=== PATIENT | female | born 1955 | race Two or more races ===

== ENCOUNTER 2024-03-11 09:45 | Inpatient (IN) | payer OTHER ==
[~2024-03-11] VITALS: Ht 167.6 cm; Wt 61.2 kg
[~2024-03-11 09:45] MED LIST: ATENOLOL50 MG; CARDURA XL4 MG; ELIQUIS2.5 MG; HUMIRA40 MG/0.2; INTESTINEX680 M1 PO; LEVSIN/SL0.125 MG SL; SIMVASTATIN5 MG; SYNTHROID100 MCG; TRAZODONE HCL150 MG
[2024-03-11 11:38] LABS: PH,URINE 6.5 (5.0-8.0); URINE APPEARANCE Clear; URINE BILIRRUBIN Negative (NEGATIVE); URINE BLOOD Small; URINE COLOR Yellow; URINE GLUCOSE Negative (NEGATIVE); URINE KETONE Trace (NEGATIVE); URINE LEUKOCYTE Moderate; URINE NITRATE Positive; URINE PROTEIN Negative (NEGATIVE); URINE UROBILINOGEN 0.2 E.U./dl
[2024-03-11 11:39] LABS: HEMATOCRIT 33.4 % (36.0-45.00); HEMOGLOBIN 11.5 g/dL (12.0-15.00); MEAN CELL VOLUME 96.9 fL (80.00-100.00); MEAN CORPUSCULAR HEMOGLOBIN 33.4 pg (27.00-32.0); MEAN CORPUSCULAR HGB CONC 34.5 g/dl (32.0-36.0); PLATELET COUNT 168 K/uL (150-450); RED BLOOD COUNT 3.45 M/uL (4.00-6.00); RED CELL DISTRIBUTION WIDTH 13.7 % (11.5-14.5)
[2024-03-11 11:40] LABS: URINE RBC 20.7 uL (0.0-20.8); URINE WBC 346.7 uL (0.0-23.2)
[2024-03-11 12:06] VITALS: BP 117/67
[2024-03-11 12:17] LABS: INR 1.14; PARTIAL THROMBOPLASTIN TIME 37.9 SECONDS (22.0-34.0); PROTHROMBIN TIME 12.3 SECONDS (9.0-11.5)
[2024-03-11 12:28] LABS: URINE BACTERIA > 9821.5 uL (0.0-1933)
[2024-03-11 12:36] LABS: ALBUMIN 3.6 gm/dL (3.4-5.0); BILIRUBIN TOTAL 0.62 mg/dL (0.3-1.2); CALCIUM 8.8 mg/dL (8.5-10.1); CREATININE SERUM 0.81 mg/dL (0.55-1.02); GFR 70.11; POTASSIUM 4.19 mEq/L (3.5-5.1); TOTAL PROTEIN 6.6 gm/dL (6.4-8.2)
[2024-03-18] MEDS ORDERED: LIDOCAINE HCL 1%/EPINEPHRINE 20ML VIAL IJ ONE (12:30)
[2024-03-18] MEDS ORDERED: CEFTRIAXONE SODIUM 2,000 MG VIAL IV ONE (12:30)
[2024-03-18] MEDS ORDERED: BUPIVACAINE HCL 30 ML VIAL IJ ONE (12:30)
[2024-03-18] MEDS ORDERED: METRONIDAZOLE/SODIUM CHLORIDE 500 MG/100 ML PIGGYBACK IV ONE (12:30)
[2024-03-18] MEDS ORDERED: DEXTROSE 50 % IN WATER 0.5 G/ML DISP.SYRIN IV PRN (13:15)
[2024-03-18] MEDS ORDERED: 0.9 % SODIUM CHLORIDE 1,000 ML IV SCH (13:15)
[2024-03-18] MEDS ORDERED: OxyCODONE HCL 5 MG TABLET (ROXICODONE) PO PRN (13:15)
[2024-03-18] MEDS ORDERED: MORPHINE SULFATE 4 MG/ML CARTRIDGE IV PRN (13:15)
[2024-03-18] MEDS ORDERED: ONDANSETRON HCL 2 MG/ML VIAL IV PRN (13:15)
[2024-03-18] MEDS ORDERED: ACETAMINOPHEN 500 MG GEL..CAP PO SCH (14:00)
[2024-03-18] MEDS ORDERED: MORPHINE SULFATE 4 MG/ML VIAL IV ONE ×2 (15:10→17:00)
[2024-03-18 15:58] LABS: HEMATOCRIT 32.8 % (36.0-45.00); HEMOGLOBIN 11.3 g/dL (12.0-15.00); MEAN CELL VOLUME 98.3 fL (80.00-100.00); MEAN CORPUSCULAR HEMOGLOBIN 33.8 pg (27.00-32.0); MEAN CORPUSCULAR HGB CONC 34.4 g/dl (32.0-36.0); PLATELET COUNT 145 K/uL (150-450); RED BLOOD COUNT 3.34 M/uL (4.00-6.00); RED CELL DISTRIBUTION WIDTH 13.9 % (11.5-14.5)
[2024-03-18 16:28] LABS: ALBUMIN 3.2 gm/dL (3.4-5.0); CALCIUM 8.5 mg/dL (8.5-10.1); CREATININE SERUM 0.92 mg/dL (0.55-1.02); GFR 60.53; MAGNESIUM 1.6 mg/dL (1.8-2.4); POTASSIUM 4.09 mEq/L (3.5-5.1)
[2024-03-18] MEDS ORDERED: GABAPENTIN 300 MG CAPSULE PO SCH (17:00)
[2024-03-18] MEDS ORDERED: HYOSCYAMINE SULFATE 0.125 MG TAB.SUBL SL SCH (17:00)
[2024-03-18] MEDS ORDERED: METRONIDAZOLE/SODIUM CHLORIDE 500 MG/100 ML PIGGYBACK IV SCH (17:00)
[2024-03-18] MEDS ORDERED: POLYETHYLENE GLYCOL 3350 17 GM BLIST.PACK PO SCH (17:00)
[2024-03-18 18:04] VITALS: BP 123/69; O2SAT 95
[2024-03-18] MEDS ORDERED: FAMOTIDINE/PF 20 MG/2 ML VIAL IV PUSH SCH (21:00)
[2024-03-19 01:03] VITALS: BP 111/67; O2SAT 98
[2024-03-19] MEDS ORDERED: LEVOTHYROXINE SODIUM 100 MCG TABLET PO SCH (06:00)
[2024-03-19 07:16] LABS: HEMOGLOBIN 10.6 g/dL (12.0-15.00); MEAN CORPUSCULAR HGB CONC 34.3 g/dl (32.0-36.0); RED BLOOD COUNT 3.13 M/uL (4.00-6.00); RED CELL DISTRIBUTION WIDTH 14.1 % (11.5-14.5)
[2024-03-19 07:17] LABS: PLATELET COUNT 122 K/uL (150-450)
[2024-03-19 07:41] LABS: ALBUMIN 2.7 gm/dL (3.4-5.0); CALCIUM 8.2 mg/dL (8.5-10.1); CREATININE SERUM 0.82 mg/dL (0.55-1.02); GFR 69.12; MAGNESIUM 1.6 mg/dL (1.8-2.4); PHOSPHOROUS 3.1 mg/dL (2.5-4.9); POTASSIUM 3.88 mEq/L (3.5-5.1)
[2024-03-19 08:00] VITALS: BP 105/60; O2SAT 100
[2024-03-19] MEDS ORDERED: ATENOLOL 50 MG TABLET PO SCH (09:00)
[2024-03-19] MEDS ORDERED: SOD FERRIC GLUC COMPLX/SUCROSE 62.5 MG in 0.9 % SODIUM CHLORIDE 50 ML IV SCH (12:00)
[2024-03-19] MEDS ORDERED: Cyanocobalamin/Mecobalamin 1 TAB.SL SL SCH (12:00)
[2024-03-19 16:00] VITALS: BP 114/59; O2SAT 100
[2024-03-19] MEDS ORDERED: SIMVASTATIN 20 MG TABLET PO SCH (17:00)
[2024-03-19] MEDS ORDERED: ENOXAPARIN SODIUM 40 MG/0.4 ML SYRINGE SUBCUTANEO SCH (17:00)
[2024-03-20 01:24] VITALS: BP 105/57; O2SAT 98
[2024-03-20 07:07] LABS: HEMATOCRIT 32.8 % (36.0-45.00); HEMOGLOBIN 11.2 g/dL (12.0-15.00); MEAN CELL VOLUME 98.4 fL (80.00-100.00); MEAN CORPUSCULAR HEMOGLOBIN 33.7 pg (27.00-32.0); MEAN CORPUSCULAR HGB CONC 34.3 g/dl (32.0-36.0); PLATELET COUNT 137 K/uL (150-450); RED BLOOD COUNT 3.33 M/uL (4.00-6.00); RED CELL DISTRIBUTION WIDTH 13.7 % (11.5-14.5)
[2024-03-20 07:42] LABS: CALCIUM 8.3 mg/dL (8.5-10.1); CREATININE SERUM 0.83 mg/dL (0.55-1.02); GFR 68.16; MAGNESIUM 1.7 mg/dL (1.8-2.4); PHOSPHOROUS 2.2 mg/dL (2.5-4.9); POTASSIUM 4.29 mEq/L (3.5-5.1)
[2024-03-20 08:00] VITALS: BP 100/62; O2SAT 100
[2024-03-20] MEDS ORDERED: ENOXAPARIN SODIUM 40 MG/0.4 ML SYRINGE SUBCUTANEO SCH (09:00)
[2024-03-20 09:10] LABS: MANUAL PLATELET COUNT 178
[2024-03-20 16:18] VITALS: BP 102/58; O2SAT 94
[2024-03-21 00:36] VITALS: BP 91/65; O2SAT 97
[2024-03-21 08:34] VITALS: BP 125/87; O2SAT 95
[2024-03-21 17:00] VITALS: BP 95/57; O2SAT 96
[2024-03-21] MEDS ORDERED: DEXTROSE 5 % IN WATER 1,000 ML IV SCH (19:30)
[2024-03-22 00:45] VITALS: BP 125/83; O2SAT 97
[2024-03-22 06:19] LABS: HEMATOCRIT 28.4 % (36.0-45.00); HEMOGLOBIN 9.7 g/dL (12.0-15.00); MEAN CORPUSCULAR HGB CONC 34.3 g/dl (32.0-36.0); PLATELET COUNT 148 K/uL (150-450); RED BLOOD COUNT 2.87 M/uL (4.00-6.00)
[2024-03-22 06:35] LABS: ALBUMIN 2.5 gm/dL (3.4-5.0); BILIRUBIN TOTAL 0.51 mg/dL (0.3-1.2); CALCIUM 8.4 mg/dL (8.5-10.1); CREATININE SERUM 0.89 mg/dL (0.55-1.02); GFR 62.89; GLOBULINA 2.8 G/DL (2.4-3.5); POTASSIUM 4.07 mEq/L (3.5-5.1); TOTAL PROTEIN 5.3 gm/dL (6.4-8.2)
[2024-03-22 06:57] LABS: MAGNESIUM 1.4 mg/dL (1.8-2.4)
[2024-03-22 08:00] VITALS: BP 124/60; O2SAT 98
[2024-03-22] MEDS ORDERED: MAGNESIUM SULFATE IN WATER 50 ML IV NR (12:00)
[2024-03-22] MEDS ORDERED: HYOSCYAMINE0.125 M1 SL (13:36)
[2024-03-22] MEDS ORDERED: PEPCID AC20 MG PO (13:36)
[2024-03-22] MEDS ORDERED: INTEGRA F CAPS1 EACH PO (13:37)
[2024-03-22] MEDS ORDERED: TRAM1TAB98 PO (13:37)
[2024-03-22] MEDS ORDERED: ABANEU-SL TABL1 EACH SL (13:39)
[2024-03-22] MEDS ORDERED: GABAPENTIN 100 MG CAPSULE PO SCH (17:00)
[2024-03-22] MEDS ORDERED: GABAPENTIN 300 MG CAPSULE PO SCH (21:00)
== END 2024-03-22 14:50 | disposition home or self-care (01) | DRG 331 ==
LOC: SURH 03-18 07:00 → O/R 03-18 07:14 → SURH 03-18 09:45
PROVIDERS: Internal Medicine Geriatric Medicine; Specialist; ADMIT Surgery; ATTEND Surgery
PROC: 0DTF4ZZ Resection of Right Large Intestine, Percutaneous Endoscopic Approach (ICD-10-PCS; principal; 2024-03-18 07:00)
DX: K50.012 Crohn's disease of small intestine with intestinal obstruction (principal); K50.018 Crohn's disease of small intestine with other complication; I11.9 Hypertensive heart disease without heart failure

== ENCOUNTER → 2024-03-18 06:46 | Outpatient (CLI) | payer OTHER ==
[2024-03-18 07:26] LABS: INR 1.15; PROTHROMBIN TIME 12.4 SECONDS (9.0-11.5)
== END | disposition home or self-care (01) ==
LOC: LAB 06:46
PROVIDERS: ATTEND Internal Medicine
DX: I10 Essential (primary) hypertension (principal)